=== PATIENT | female | born 1935 | race Caucasian/White ===

== ENCOUNTER 2016-04-17 09:35 | Emergency (ER) | payer OTHER, MEDICARE ==
[~2016-04-17] VITALS: Ht 167.6 cm; Wt 75.9 kg
[~2016-04-17 09:35] MED LIST: ADULT LOW DOSE81 M1 PO; ALL DAY ALLERGY10 M2 PO; ASCORBIC ACID500 MG PO; ASPIRIN325 MG PO; ASPIRIN81 M1; ASPIRIN81 M1 PO; ASPIRIN81 M2 PO; Ascorbic Acid,Ester- PO; Aspirin E.C. PO; BACTRIM,SEPT1 TABLET PO; CARDIZEM CD120 MG PO; CENTRUM SILVER1 EAC3 PO; CENTRUM SILVER1 EACH PO; CEPHALEXIN500 MG PO; CIPRO500 MG PO; CITRATE OF MAG296 ML PO; COATED ASPIRIN325 MG PO; ELIQUIS5 MG PO; FIBER LAXATIV0.52 GM PO; FLAGYL250 MG PO; FLAGYL500 MG PO; FUROSEMIDE20 MG PO; LEVOTHYROXINE25 MCG PO; LIPITOR40 MG PO; LOPRESSOR100 M1 PO; LOPRESSOR50 MG PO; Lopressor PO; METOPROLOL SUCC25 MG; MIRALAX17 GM PO; PREVACID SOLUTA15 MG PO; PROCTOFOAM-HC10 GM PR; PROTONIX40 MG PO; Pradaxa PO; SALINE NASAL SP45 ML BOTH NARES; VITAMIN C500 M1 PO; VITAMIN D1000 INTUN PO; VITAMIN D31000 UNIT PO; ZYRTEC10 M3 PO
[2016-04-17 10:08] LABS: HEMATOCRIT 39.1 % (36.0-46.0); MCH 29.7 PG (29.0-34.0); MCHC 34.3 G/DL (30.0-36.0); MCV 86.7 FL (83-99); MEAN PLAT.VOLUME 9.8 uM^3 (9.5-12.4); PLATELET COUNT 107 K/uL (156-360); RBC DIS.WIDTH-CV 13.8 % (11.8-14.6); RBC DIS.WIDTH-SD 42.9 % (39-53); RED BLOOD COUNT 4.51 M/uL (3.80-5.20); WHITE BLOOD COUNT 6.5 K/uL (4.1-10.2)
[2016-04-17 10:09] LABS: EOSINOPHIL (%) 0.6 % (0-5); IMMATURE GRANULOCYTE (%) 0.3 % (0.0-0.7); IMMATURE GRANULOCYTE COUNT 0.2 K/uL; LYMPHOCYTE COUNT 0.9 K/uL (1.0-2.8); MONOCYTE (%) 17.9 % (3-12); MONOCYTE COUNT 1.2 K/uL (0-0.8); NEUTROPHIL (%) 66.4 % (45-76); NEUTROPHIL COUNT 4.3 K/uL (1.8-6.4)
[2016-04-17 10:17] LABS: CHLORIDE 102 mEq/L (99-109); POTASSIUM 3.7 mEq/L (3.7-5.4); SODIUM 141 mEq/L (136-147)
[2016-04-17 10:19] LABS: GLUCOSE 116 mg/dL (70-99)
[2016-04-17 10:19] LABS: ADD MIUA? YES; BILIRUBIN NEGATIVE; BLOOD NEGATIVE; COLOR YELLOW ((YELLOW)); GLUCOSE (STRIP) NEGATIVE; KETONES 20; LEUKOCYTES MODERATE; NITRITE NEGATIVE; PROTEIN (STRIP) NEGATIVE; SPECIFIC GRAVITY 1.015 (1.000-1.030)
[2016-04-17 10:20] LABS: ANION GAP 11 MEQ/L (2-14)
[2016-04-17 10:23] LABS: GFR ESTIMATE (CALCULATED) > 59 mL/min/
[2016-04-17 10:24] LABS: UREA NITROGEN (BUN) 14 mg/dL (9-23)
[2016-04-17 10:50] LABS: BACTERIA NONE SEEN /HPF; EPITHELIAL CELLS RARE /HPF; HYALINE CASTS 0-5 /LPF; MUCUS TRACE /LPF; UCUL ADDED? NO; WHITE BLOOD CELLS 20-30 /HPF (0-5)
[2016-04-17] MEDS ORDERED: CIPRO500 MG PO (11:51)
[2016-04-17 12:46] VITALS: BP 141/90
== END 2016-04-17 13:35 | disposition home or self-care (01) ==
LOC: EME 09:35
PROVIDERS: Emergency Medicine
DX: F03.90 Unspecified dementia, unspecified severity, without behavioral disturbance, psychotic disturbance, mood disturbance, and anxiety (principal); N39.0 Urinary tract infection, site not specified; Z91.81 History of falling; Z79.82 Long term (current) use of aspirin
CPT/HCPCS: 70450; 73030; 73502; 80048; 81003; 85025; 99281; 99284

== ENCOUNTER 2016-04-19 08:03 | Emergency (ER) | payer OTHER, MEDICARE ==
[~2016-04-19] VITALS: Ht 177.8 cm; Wt 77.0 kg
[2016-04-19 09:17] LABS: HEMATOCRIT 42.6 % (36.0-46.0); MCH 29.8 PG (29.0-34.0); MCHC 34.5 G/DL (30.0-36.0); MCV 86.2 FL (83-99); RBC DIS.WIDTH-CV 14.4 % (11.8-14.6); RBC DIS.WIDTH-SD 44.3 % (39-53); RED BLOOD COUNT 4.94 M/uL (3.80-5.20)
[2016-04-19 09:23] LABS: CHLORIDE 102 mEq/L (99-109)
[2016-04-19 09:24] LABS: SODIUM 141 mEq/L (136-147)
[2016-04-19 09:25] LABS: GLUCOSE 140 mg/dL (70-99)
[2016-04-19 09:27] LABS: ANION GAP 12 MEQ/L (2-14)
[2016-04-19 09:29] LABS: GFR ESTIMATE (CALCULATED) > 59 mL/min/
[2016-04-19 09:30] LABS: UREA NITROGEN (BUN) 16 mg/dL (9-23)
[2016-04-19 09:37] LABS: WHITE BLOOD COUNT 9.3 K/uL (4.1-10.2)
[2016-04-19] MEDS ORDERED: DIVALPROEX SOD500 MG PO (09:54)
[2016-04-19 09:55] LABS: PLATELET COUNT 146 K/uL (156-360)
[2016-04-19] MEDS ORDERED: KEFLEX500 MG PO (10:36)
[2016-04-19] MEDS ORDERED: SENNA PLUS TAB1 EACH PO (10:37)
[2016-04-19] MEDS ORDERED: ZOLOFT25 MG PO (10:37)
[2016-04-19] MEDS ORDERED: LAMICTAL25 MG PO (10:38)
[2016-04-19] MEDS ORDERED: ATIVAN0.5 MG PO (10:38)
[2016-04-19 12:07] VITALS: BP 157/88
== END 2016-04-19 12:07 ==
LOC: EME → EDBD 08:03 → EME 12:07
PROVIDERS: Emergency Medicine
DX: R52 Pain, unspecified (principal); F03.90 Unspecified dementia, unspecified severity, without behavioral disturbance, psychotic disturbance, mood disturbance, and anxiety; W19.XXXA Unspecified fall, initial encounter; Y92.129 Unspecified place in nursing home as the place of occurrence of the external cause; I10 Essential (primary) hypertension; E03.9 Hypothyroidism, unspecified
CPT/HCPCS: 70450; 74176; 80048; 85027; 99281; 99285; J2060; J7030

== ENCOUNTER 2016-04-20 18:51 | Emergency (ER) | payer OTHER, MEDICARE ==
[~2016-04-20] VITALS: Ht 175.3 cm; Wt 73.3 kg
[~2016-04-20 18:51] MED LIST changes: +ATIVAN0.5 MG PO; +DIVALPROEX SOD500 MG PO; +KEFLEX500 MG PO; +LAMICTAL25 MG PO; +SENNA PLUS TAB1 EACH PO; +ZOLOFT25 MG PO
[2016-04-20 20:28] LABS: ADD MIUA? YES; BILIRUBIN NEGATIVE; BLOOD NEGATIVE; COLOR DK YELLOW ((YELLOW)); GLUCOSE (STRIP) NEGATIVE; KETONES 5; LEUKOCYTES NEGATIVE; NITRITE NEGATIVE; PROTEIN (STRIP) NEGATIVE; SPECIFIC GRAVITY 1.019 (1.000-1.030)
[2016-04-20 20:30] LABS: MCH 29.7 PG (29.0-34.0); MCV 87.3 FL (83-99); MEAN PLAT.VOLUME 9.8 uM^3 (9.5-12.4); PLATELET COUNT 172 K/uL (156-360); RBC DIS.WIDTH-CV 14.4 % (11.8-14.6); RBC DIS.WIDTH-SD 45.2 % (39-53); RED BLOOD COUNT 4.58 M/uL (3.80-5.20); WHITE BLOOD COUNT 7.6 K/uL (4.1-10.2)
[2016-04-20 20:32] LABS: BACTERIA RARE /HPF; CASTS PRESENT /LPF; EPITHELIAL CELLS RARE /HPF; HYALINE CASTS 15-20 /LPF; MUCUS 4+ /LPF; RED BLOOD CELLS 0-5 /HPF (0-5); UCUL ADDED? NO; WHITE BLOOD CELLS 0-5 /HPF (0-5)
[2016-04-20 20:38] LABS: CHLORIDE 105 mEq/L (99-109); SODIUM 145 mEq/L (136-147)
[2016-04-20 20:40] LABS: GLUCOSE 132 mg/dL (70-99)
[2016-04-20 20:41] LABS: ANION GAP 11 MEQ/L (2-14)
[2016-04-20 20:42] LABS: TOTAL BILIRUBIN 1.6 mg/dL (0.0-1.0)
[2016-04-20 20:44] LABS: ALKALINE PHOSPHATASE 45 IU/L (3-129); GFR ESTIMATE (CALCULATED) > 59 mL/min/
[2016-04-20 20:45] LABS: UREA NITROGEN (BUN) 19 mg/dL (9-23)
[2016-04-20 22:41] VITALS: BP 133/69
== END 2016-04-20 22:49 ==
LOC: EME 18:51
DX: F03.90 Unspecified dementia, unspecified severity, without behavioral disturbance, psychotic disturbance, mood disturbance, and anxiety (principal); Z04.3 Encounter for examination and observation following other accident; I10 Essential (primary) hypertension; E03.9 Hypothyroidism, unspecified; Z79.82 Long term (current) use of aspirin
CPT/HCPCS: 80053; 81003; 85027; 99281; 99284

== ENCOUNTER 2016-05-11 17:37 | Emergency (ER) | payer OTHER, MEDICARE ==
[~2016-05-11] VITALS: Ht 175.3 cm; Wt 66.5 kg
[2016-05-11 21:42] VITALS: BP 124/67
== END 2016-05-11 21:43 ==
LOC: EME → EDBD 17:37 → EME 17:37
DX: Z04.3 Encounter for examination and observation following other accident (principal); F03.90 Unspecified dementia, unspecified severity, without behavioral disturbance, psychotic disturbance, mood disturbance, and anxiety; W18.30XA Fall on same level, unspecified, initial encounter; I10 Essential (primary) hypertension; E03.9 Hypothyroidism, unspecified; Z88.1 Allergy status to other antibiotic agents; Z88.6 Allergy status to analgesic agent; Z91.041 Radiographic dye allergy status
CPT/HCPCS: 70450; 99281; 99284

== ENCOUNTER 2016-05-18 18:20 | Inpatient (IN) | payer OTHER, MEDICARE ==
[~2016-05-18] VITALS: Ht 167.6 cm; Wt 60.5 kg
[2016-05-18 19:02] LABS: HEMATOCRIT 48.5 % (36.0-46.0); MCH 29.7 PG (29.0-34.0); MEAN PLAT.VOLUME 11.6 uM^3 (9.5-12.4); PLATELET COUNT 198 K/uL (156-360); RBC DIS.WIDTH-CV 14.8 % (11.8-14.6); RBC DIS.WIDTH-SD 50.8 % (39-53); RED BLOOD COUNT 5.22 M/uL (3.80-5.20); WHITE BLOOD COUNT 7.9 K/uL (4.1-10.2)
[2016-05-18 19:12] LABS: MCV 92.9 FL (83-99)
[2016-05-18 19:17] LABS: CHLORIDE 112 mEq/L (99-109); POTASSIUM 3.6 mEq/L (3.7-5.4); SODIUM 155 mEq/L (136-147)
[2016-05-18 19:19] LABS: GLUCOSE 138 mg/dL (70-99)
[2016-05-18 19:20] LABS: ANION GAP 14 MEQ/L (2-14)
[2016-05-18 19:23] LABS: GFR ESTIMATE (CALCULATED) 51 mL/min/
[2016-05-18 19:24] LABS: UREA NITROGEN (BUN) 36 mg/dL (9-23)
[2016-05-18 19:28] LABS: INTER. NORMALIZED RATIO 1.3; PROTHROMBIN TIME 13.2 (9.2-11.2); TROP-I INTERPRETATION NEGATIVE; TROPONIN-I 0.04 ng/mL (0.0-0.30)
[2016-05-18] MEDS ORDERED: CARTIA XT120 MG PO (21:40)
[2016-05-18] MEDS ORDERED: K-DUR10 MEQ PO (21:43)
[2016-05-18 22:22] VITALS: BP 148/75
[2016-05-19 07:21] VITALS: BP 155/79
[2016-05-19 16:30] VITALS: BP 130/71
[2016-05-20 00:11] VITALS: BP 121/75
[2016-05-20 08:16] VITALS: BP 136/76
[2016-05-20 17:33] VITALS: BP 115/67
[2016-05-21] VITALS: BP 151/68
[2016-05-21 08:18] VITALS: BP 141/87
[2016-05-21] MEDS ORDERED: ATIVAN INTE2 MG/1 ML PO (11:24)
[2016-05-21] MEDS ORDERED: MORPHINE CON20 MG/M1 PO (11:24)
[2016-05-21] MEDS ORDERED: ANASPAZ0.125 MG PO (11:24)
== END 2016-05-21 14:43 | disposition hospice, home (50) | DRG 884 ==
LOC: EME → EDBD 18:20 → EME 18:20 → EDOF 20:36 → 5SOUTH 20:36
PROVIDERS: Emergency Medicine
DX: F01.50 Vascular dementia, unspecified severity, without behavioral disturbance, psychotic disturbance, mood disturbance, and anxiety (principal); E87.0 Hyperosmolality and hypernatremia; I48.91 Unspecified atrial fibrillation; I69.918 Other symptoms and signs involving cognitive functions following unspecified cerebrovascular disease; R29.6 Repeated falls; Z66 Do not resuscitate; I10 Essential (primary) hypertension; E03.9 Hypothyroidism, unspecified; E83.52 Hypercalcemia; E87.6 Hypokalemia; Z51.5 Encounter for palliative care; N39.498 Other specified urinary incontinence
CPT/HCPCS: 70450; 71010; 72125; 80048; 84484; 85027; 85610; 93005; 99281; 99285; J2060; J7030